=== PATIENT | female | born 1975 | race Caucasian/White ===

== ENCOUNTER 2018-08-29 05:37 | Emergency (ER) | payer MEDICARE ==
[2018-08-29] MEDS ORDERED: OXYCODONE-ACETAMINOPHEN 5-325 MG TABLET PO ONE (06:20)
[2018-08-29] MEDS ORDERED: ONDANSETRON 4 MG TAB.RAPDIS PO ONE (06:20)
--- NOTE | 2018-08-29 06:30 | ER Document Report ---
ED General - General Chief Complaint: Knee Pain Stated Complaint: RIGHT KNEE PAIN Time Seen by Provider: 08/29/18 06:04 Primary Care Provider: HEIDI TRAORE MD [ACTIVE STAFF] - Follow up as needed TRAVEL OUTSIDE OF THE [place] IN LAST 30 DAYS: No - HPI Notes: Patient is a 43-year-old female presents the emergency department of right knee pain. She has known osteoarthritis in that knee. She had a left total knee arthroplasty done 3 or 4 years ago. At that time she was told she should have her right done, but her left knee was too painful so she deferred it. She states she fell hard on her knee in April. She states she fell onto the lateral aspect, with all of her weight landing on the knee. She states that recently she tripped. Since then she states she cannot bear weight without "10 out of 10 pain." I asked about locking up or giving way, and she states she cannot bear weight on it enough to know. She states she is unable to actively straighten the knee because of pain. - Related Data Allergies/Adverse Reactions: Penicillins Allergy (Verified 08/29/18 06:25) Past Medical History - General Information source: Patient - Social History Smoking Status: Current Every Day Smoker Family History: Reviewed & Not Pertinent Patient has suicidal ideation: No Patient has homicidal ideation: No - Past Medical History Cardiac Medical History: Reports: Hx Hypertension Renal/ Medical History: Denies: Hx Peritoneal Dialysis GI Medical History: Reports: Hx Gastritis - Patient relates history of gastric ulcer Musculoskeletal Medical History: Reports Other - Osteoarthritis and degenerative disc disease Psychiatric Medical History: Reports: Hx Anxiety, Hx Depression Past Surgical History: Reports: Hx Orthopedic Surgery - Left total knee arthroplasty Review of Systems - Review of Systems Constitutional: No symptoms reported EENT: No symptoms reported Cardiovascular: No symptoms reported Respiratory: No symptoms reported Gastrointestinal: No symptoms reported Genitourinary: No symptoms reported Musculoskeletal: See HPI Skin: No symptoms reported Neurological/Psychological: No symptoms reported Physical Exam - Vital signs Vitals: Temp Pulse Resp BP Pulse Ox 97.4 F 78 18 151/99 H 98 08/29/18 05:48 08/29/18 05:48 08/29/18 05:48 08/29/18 05:48 08/29/18 05:48 - Notes Notes: Patient is an obese 43-year-old female, appears her stated age, no acute distress. Heart is regular rate and rhythm, lungs are clear to auscultation bilaterally. Examination of the right lower extremity yields no obvious signs of trauma or deformity. Exam is limited secondary to body habitus and pain. She is laying with her leg fully extended at the knee. She does have some medial joint line tenderness. No lateral joint line tenderness. Negative drawer sign. No significant collateral ligament instability. Positive Beatrice's. Neurovascularly intact distally. Course - Re-evaluation Re-evalutation: 08/29/18 07:24 Patient presents the emergency department for evaluation of right knee pain. She Trace has known degenerative joint disease there. X-ray showed significant degenerative changes, trace effusion. These findings are most consistent with exam findings and history. Patient had some improvement in pain with her Percocet here. We will send her home with steroids and an orthopedic referral. She was offered crutches, she states that because of her neuropathy she would have difficulty operating them. We will write a prescription for a walker. Will refer her on to Ortho, she is to return to the emergency department with worsening or new concerning symptoms. - Vital Signs Vital signs: Temp Pulse Resp BP Pulse Ox 97.4 F 78 18 151/99 H 98 08/29/18 05:48 08/29/18 05:48 08/29/18 05:48 08/29/18 05:48 08/29/18 05:48 - Diagnostic Test Radiology reviewed: Reports reviewed - Osteoarthritis and degenerative changes, trace joint effusion Discharge - Discharge Clinical Impression: Osteoarthritis of right knee, Effusion, right knee Condition: Stable Disposition: HOME, SELF-CARE Instructions: Suspected Internal Knee Injury ([facility]) Additional Instructions: Take medication as prescribed until gone. Follow-up with our on-call orthopedist, listed below. Return to the emergency department with worsening or new concerning symptoms. Prescriptions: Methylprednisolone [Medrol Dosepack (4 mg/Tab) 21 Tab/Dosepak] 4 mg PO ASDIR PRN #[id number] PRN Reason: Referrals: HEIDI TRAORE MD [ACTIVE STAFF] - Follow up as needed
--- NOTE | 2018-08-29 07:07 | RADIOLOGY REPORT (SQ) ---
Right knee three view on 08/29/2018 at 6:44 AM CLINICAL INDICATION: Knee pain after fall COMPARISON: None FINDINGS: There is all three compartment joint space narrowing with osteophyte formation consistent with changes of osteoarthritis. Joint space narrowing is worse in the medial compartment. Trace joint effusion is noted. There are no fractures. Visualized joints are well aligned. No other bony abnormality is noted. IMPRESSION: 1. Moderate changes of osteoarthritis with no acute bony abnormality. 2. Probable trace joint effusion, if clinically indicated follow up MRI could better evaluate for internal derangement of the joint.
[2018-08-29 07:54] VITALS: BP 133/72
== END 2018-08-29 07:50 | disposition home or self-care (01) ==
LOC: ER 05:37
DX: M17.11 Unilateral primary osteoarthritis, right knee (principal); M25.461 Effusion, right knee; M25.561 Pain in right knee; I10 Essential (primary) hypertension; E66.9 Obesity, unspecified; F17.200 Nicotine dependence, unspecified, uncomplicated; Z96.652 Presence of left artificial knee joint; Z88.0 Allergy status to penicillin
CPT/HCPCS: 99283; 73562; A9270 ×2; S0119

== ENCOUNTER 2018-12-16 16:30 | Emergency (ER) | payer MEDICARE ==
[2018-12-16] MEDS ORDERED: NORMAL SALINE 1000 ML 1,000 ML IV ONE (17:06)
[2018-12-16] MEDS ORDERED: ONDANSETRON HCL INJ/PF 4 MG/2 ML SDV IV ONE (17:06)
[2018-12-16] MEDS ORDERED: MORPHINE SULFATE 10 MG/ML INJ IV ONE (17:06)
--- NOTE | 2018-12-16 17:09 | ER Document Report ---
ED Medical Screen (RME) - General Chief Complaint: Diarrhea Stated Complaint: DIARRHEA Time Seen by Provider: 12/16/18 17:01 TRAVEL OUTSIDE OF THE [place] IN LAST 30 DAYS: No - HPI Notes: 12/16/18 17:07 Patient is a 43-year-old female with history of stomach ulcers, GERD, irritable bowel who presents complaining of nausea, intermittent abdominal cramping, "explosive" watery diarrhea after being on clindamycin for dental pain/infection. Patient states that she does continue to have dental pain to her upper right and lower right molars. She has not noticed any facial swelling. She is still urinating normally. No other vaginal bleeding, odor, or discharge. Patient spoke with her doctor today who wanted her evaluated and tested for possible C. difficile as well. Denies MORRISON, fever, neck pain, URI, CP, SOB, dysuria, back pain, or rash. I have treated and performed a rapid initial assessment of this patient. A comprehensive ED assessment and evaluation of the patient, analysis of test results and completion of medical decision making process will be conducted by additional ED providers. PHYSICAL EXAMINATION: GENERAL: Well-appearing, well-nourished and in no acute distress. A&Ox4. Answe rs questions appropriately. LUNGS: Breath sounds clear to auscultation bilaterally and equal. No wheezes rales or rhonchi. HEART: Regular rate and rhythm without murmurs, rubs, gallops. ABDOMEN: Soft, nondistended abdomen. No guarding, no rebound. Normal bowel sounds present. No CVA tenderness bilaterally. Grossly nontender (cannot elicit thorough abd exam w/o bed, however). morbid obesity. - Related Data Allergies/Adverse Reactions: Penicillins Allergy (Verified 08/29/18 06:25) Past Medical History - Social History Frequency of alcohol use: None Drug Abuse: None - Past Medical History Cardiac Medical History: Reports: Hx Hypertension Renal/ Medical History: Denies: Hx Peritoneal Dialysis GI Medical History: Reports: Hx Gastritis - Patient relates history of gastric ulcer Psychiatric Medical History: Reports: Hx Anxiety, Hx Depression Past Surgical History: Reports: Hx Orthopedic Surgery - Left total knee arthroplasty Physical Exam - Vital signs Vitals: Temp Pulse Resp BP Pulse Ox 97.5 F 77 16 156/98 H 95 12/16/18 16:52 12/16/18 16:52 12/16/18 16:52 12/16/18 16:52 12/16/18 16:52 Course - Vital Signs Vital signs: Temp Pulse Resp BP Pulse Ox 97.5 F 77 16 156/98 H 95 12/16/18 16:52 12/16/18 16:52 12/16/18 16:52 12/16/18 16:52 12/16/18 16:52
--- NOTE | 2018-12-16 18:08 | ER Document Report ---
ED General - General Chief Complaint: Diarrhea Stated Complaint: DIARRHEA Time Seen by Provider: 12/16/18 17:01 TRAVEL OUTSIDE OF THE [place] IN LAST 30 DAYS: No - HPI Patient complains to provider of: Watery diarrhea Notes: Patient presents with about a 5-day history of profuse watery/explosive diarrhea. Patient has just finished a course of clindamycin therapy for a tooth infection. She is concerned she may have C. difficile. Patient denies fever chills or abdominal tenderness. - Related Data Allergies/Adverse Reactions: Penicillins Allergy (Verified 08/29/18 06:25) Past Medical History - Social History Smoking Status: Unknown if Ever Smoked Frequency of alcohol use: None Drug Abuse: None Family History: Reviewed & Not Pertinent Patient has suicidal ideation: No Patient has homicidal ideation: No - Past Medical History Cardiac Medical History: Reports: Hx Hypertension Renal/ Medical History: Denies: Hx Peritoneal Dialysis GI Medical History: Reports: Hx Gastritis - Patient relates history of gastric ulcer Psychiatric Medical History: Reports: Hx Anxiety, Hx Depression Past Surgical History: Reports: Hx Orthopedic Surgery - Left total knee arthroplasty Review of Systems - Review of Systems Notes: REVIEW OF SYSTEMS: CONSTITUTIONAL: -fevers, -chills EENT: -eye pain, -difficulty swallowing, -nasal congestion CARDIOVASCULAR: -chest pain, -syncope. RESPIRATORY: -cough, -SOB GASTROINTESTINAL: -abdominal pain, -nausea, -vomiting, + diarrhea GENITOURINARY: -dysuria, -hematuria MUSCULOSKELETAL: -back pain, -neck pain SKIN: -rash or skin lesions. HEMATOLOGIC: -easy bruising or bleeding. LYMPHATIC: -swollen, enlarged glands. NEUROLOGICAL: -altered mental status or loss of consciousness, -headache, - neurologic symptoms PSYCHIATRIC: -anxiety, -depression. ALL OTHER SYSTEMS REVIEWED AND NEGATIVE. Physical Exam - Vital signs Vitals: Temp Pulse Resp BP Pulse Ox 97.5 F 77 16 156/98 H 95 12/16/18 16:52 12/16/18 16:52 12/16/18 16:52 12/16/18 16:52 12/16/18 16:52 - Notes Notes: PHYSICAL EXAMINATION: GENERAL: Well-appearing, well-nourished and in no acute distress. HEAD: Atraumatic, normocephalic. EYES: Pupils equal round and reactive to light, extraocular movements intact, sclera anicteric, conjunctiva are normal. ENT: nares patent, oropharynx clear without exudates. Moist mucous membranes. NECK: Normal range of motion, supple without lymphadenopathy LUNGS: Breath sounds clear to auscultation bilaterally and equal. No wheezes rales or rhonchi. HEART: Regular rate and rhythm without murmurs ABDOMEN: Soft, nontender, normoactive bowel sounds. No guarding, no rebound. No masses appreciated. EXTREMITIES: Normal range of motion, no pitting or edema. No cyanosis. NEUROLOGICAL: Cranial nerves grossly intact. Normal speech, normal gait. Normal sensory and motor exams. PSYCH: Normal mood, normal affect. SKIN: Warm, Dry, normal turgor, no rashes or lesions noted. Course - Re-evaluation Re-evalutation: 12/16/18 18:15 43-year-old female presents with continued diarrhea for several days. Patient is nontoxic-appearing stable vital signs within normal limits. No pain at this time. 12/16/18 19:48 Leukocytosis negative C. difficile no gross abnormalities. Benign physical exam stable vitals within normal limits will be discharged home follow-up PCP - Vital Signs Vital signs: Temp Pulse Resp BP Pulse Ox 97.5 F 77 16 156/98 H 95 12/16/18 16:52 12/16/18 16:52 12/16/18 16:52 12/16/18 16:52 12/16/18 16:52 - Laboratory Result Diagrams: 12/16/18 17:40 12/16/18 17:40 Laboratory results interpreted by me: 12/16/18 12/16/18 17:40 17:40 Hgb 11.0 L Hct 32.7 L RDW 15.1 H Urine Blood SMALL H Discharge - Discharge Clinical Impression: Diarrhea Qualifiers: Diarrhea type: unspecified type Qualified Code(s): R19.7 - Diarrhea, unspecified Condition: Stable Disposition: HOME, SELF-CARE Instructions: Diarrhea, Nonspecific ([facility]) Additional Instructions: Your PCP
[2018-12-16 18:18] LABS: ABSOLUTE EOSINOPHILS # (AUTO) 0.3 10^3/uL (0.0-0.6); ABSOLUTE LYMPHOCYTES (AUTO) 1.4 10^3/uL (0.5-4.7); ABSOLUTE MONOCYTES (AUTO) 0.4 10^3/uL (0.1-1.4); ABSOLUTE NEUT (AUTO) 3.5 10^3/uL (1.7-8.2); BASOPHILS % (AUTO) 0.8 % (0-2); EOSINOPHILS % (AUTO) 4.8 % (0-6); HEMATOCRIT 32.7 % (36.0-47.0); LYMPHOCYTES % (AUTO) 24.9 % (13-45); MEAN CORPUSCULAR HEMOGLOBIN 27.7 pg (27.0-33.4); MEAN CORPUSCULAR HGB CONC 33.7 g/dL (32.0-36.0); MEAN CORPUSCULAR VOLUME 82 fl (80-97); MONOCYTES % (AUTO) 6.9 % (3-13); PLATELET COUNT 269 10^3/uL (150-450); RED BLOOD COUNT 3.97 10^6/uL (3.72-5.28); RED CELL DISTRIBUTION WIDTH 15.1 % (11.5-14.0); SEGMENTED NEUTROPHILS % (AUTO) 62.6 % (42-78); TOTAL CELLS COUNTED % (AUTO) 100 %; WHITE BLOOD COUNT 5.6 10^3/uL (4.0-10.5)
[2018-12-16 18:31] LABS: APPEARANCE,URINE CLEAR; BILIRUBIN,URINE NEGATIVE (NEGATIVE); COLOR,URINE STRAW; GLUCOSE, URINE NEGATIVE (NEGATIVE); KETONES,URINE NEGATIVE (NEGATIVE); LEUKOCYTE ESTERASE,URINE NEGATIVE (NEGATIVE); NITRITE,URINE NEGATIVE (NEGATIVE); PROTEIN,URINE NEGATIVE (NEGATIVE); URINE SPECIFIC GRAVITY 1.008; UROBILINOGEN,URINE NEGATIVE mg/dL (<2.0)
[2018-12-16 18:36] LABS: ALBUMIN 4.4 g/dL (3.5-5.0); ALKALINE PHOSPHATASE 74 U/L (38-126); ANION GAP 12 (5-19); ASPARTATE AMINO TRANSFERASE 24 U/L (14-36); BILIRUBIN,DIRECT 0.2 mg/dL (0.0-0.4); BILIRUBIN,TOTAL 0.3 mg/dL (0.2-1.3); BLOOD UREA NITROGEN 12 mg/dL (7-20); CALCIUM 9.4 mg/dL (8.4-10.2); CARBON DIOXIDE 26 mmol/L (22-30); CHLORIDE 101 mmol/L (98-107); GLUCOSE 83 mg/dL (75-110); POTASSIUM 4.2 mmol/L (3.6-5.0); TOTAL PROTEIN 6.9 g/dL (6.3-8.2)
[2018-12-16 20:25] VITALS: BP 162/99
== END 2018-12-16 20:30 | disposition home or self-care (01) ==
LOC: ER 16:30
DX: R19.7 Diarrhea, unspecified (principal); D72.829 Elevated white blood cell count, unspecified; I10 Essential (primary) hypertension; Z88.0 Allergy status to penicillin
CPT/HCPCS: 99284; 96361; 96374; 96375; 36415; 83690; 85025; 81025; 80053; 81001; 87493; J2270; J2405; J7030

== ENCOUNTER 2019-10-21 15:22 | Emergency (ER) | payer MEDICARE ==
--- NOTE | 2019-10-21 16:17 | ER Document Report ---
ED Medical Screen (RME) - General Chief Complaint: Abdominal Pain Stated Complaint: LOWER ABDOMINAL PAIN Time Seen by Provider: 10/21/19 16:13 Mode of Arrival: Wheelchair Information source: Patient Notes: 44-year-old female presents to ED for complaint of severe lower abdominal pelvic pain. She states she has a prolapsed uterus. She states she has perimenopause. She states she has not been to see a primary care or CHIEF LEARNING OFFICER concerning this problem is just recently started. States she is having a large amount of blood going through a pad all with large clots. She states she is used muscle relaxers and Tylenol neither of which have helped with her pain. I have greeted and performed a rapid initial assessment of this patient. A comprehensive ED assessment and evaluation of the patient, analysis of test results and completion of medical decision making process will be conducted by an additional ED providers. TRAVEL OUTSIDE OF THE [place] IN LAST 30 DAYS: No - Related Data Allergies/Adverse Reactions: Penicillins Allergy (Verified 10/21/19 16:07) Past Medical History - Social History Frequency of alcohol use: None Drug Abuse: None - Past Medical History Cardiac Medical History: Reports: Hx Hypertension Renal/ Medical History: Denies: Hx Peritoneal Dialysis GI Medical History: Reports: Hx Gastritis - Patient relates history of gastric ulcer Psychiatric Medical History: Reports: Hx Anxiety, Hx Depression Past Surgical History: Reports: Hx Orthopedic Surgery - Left total knee arthroplasty Physical Exam - Vital signs Vitals: Temp 98.1 F 10/21/19 15:23 Course - Vital Signs Vital signs: Temp Pulse Resp BP Pulse Ox 98.1 F 96 24 H 162/99 H 99 10/21/19 15:27 10/21/19 16:10 10/21/19 15:27 10/21/19 16:10 10/21/19 16:10
[2019-10-21 18:25] LABS: ABSOLUTE EOSINOPHILS # (AUTO) 0.2 10^3/uL (0.0-0.6); ABSOLUTE LYMPHOCYTES (AUTO) 1.8 10^3/uL (0.5-4.7); ABSOLUTE MONOCYTES (AUTO) 0.4 10^3/uL (0.1-1.4); ABSOLUTE NEUT (AUTO) 5.3 10^3/uL (1.7-8.2); BASOPHILS % (AUTO) 0.4 % (0-2); EOSINOPHILS % (AUTO) 2.2 % (0-6); HEMATOCRIT 33.2 % (36.0-47.0); HEMOGLOBIN 11.2 g/dL (12.0-15.5); MEAN CORPUSCULAR HEMOGLOBIN 27.5 pg (27.0-33.4); MEAN CORPUSCULAR HGB CONC 33.7 g/dL (32.0-36.0); MEAN CORPUSCULAR VOLUME 82 fl (80-97); MONOCYTES % (AUTO) 5.8 % (3-13); PLATELET COUNT 267 10^3/uL (150-450); RED BLOOD COUNT 4.07 10^6/uL (3.72-5.28); RED CELL DISTRIBUTION WIDTH 14.6 % (11.5-14.0); SEGMENTED NEUTROPHILS % (AUTO) 68.6 % (42-78); TOTAL CELLS COUNTED % (AUTO) 100 %; WHITE BLOOD COUNT 7.7 10^3/uL (4.0-10.5)
[2019-10-21 18:43] LABS: ALBUMIN 4.3 g/dL (3.5-5.0); ALKALINE PHOSPHATASE 75 U/L (38-126); ANION GAP 8 (5-19); ASPARTATE AMINO TRANSFERASE 25 U/L (14-36); BILIRUBIN,TOTAL 0.3 mg/dL (0.2-1.3); BLOOD UREA NITROGEN 11 mg/dL (7-20); CALCIUM 9.2 mg/dL (8.4-10.2); CARBON DIOXIDE 26 mmol/L (22-30); CHLORIDE 104 mmol/L (98-107); GLUCOSE 118 mg/dL (75-110); POTASSIUM 4.1 mmol/L (3.6-5.0)
--- NOTE | 2019-10-21 18:48 | RADIOLOGY REPORT (SQ) ---
EXAM DESCRIPTION: U/S NON OB PEL W/DOPPLER IMAGES COMPLETED DATE/TIME: 10/21/2019 5:19 pm REASON FOR STUDY: Vaginal bleeding clots severe pelvic pain LMP current COMPARISON: None. TECHNIQUE: Dynamic and static grayscale images acquired of the pelvis via transabdominal approach an d recorded on PACS. Additional selected color Doppler and spectral images recorded. LIMITATIONS: None. FINDINGS: UTERUS: Contour normal. No mass. ENDOMETRIAL STRIPE: No focal or generalized thickening. No masses. CERVIX: 1.5 cm. No nabothian cysts. RIGHT OVARY AND DOPPLER: Normal size. There is a cyst that measures 6.2 x 5.8 x 6.4 cm. No worrisom e masses. Normal arterial vascular flow without evidence for torsion. LEFT OVARY AND DOPPLER: Normal size. No worrisome masses. Normal arterial vascular flow without evide nce for torsion. FREE FLUID: None noted. OTHER: No other significant finding. MEASUREMENTS: UTERUS: 4.3 x 3.4 x 2.6 cm. ENDOMETRIAL STRIPE: 5 mm. RIGHT OVARY: 6.9 x 6.3 x 6.4 cm. LEFT OVARY: 4 x 3.3 x 3.2 cm. IMPRESSION: 6.4 cm simple cyst on the right ovary. This is almost certainly benign. Recommend tom al follow-up. No other significant finding. TECHNICAL DOCUMENTATION: JOB ID: [id number] 2010 [employer]- All Rights Reserved Rev-09/27 Reading location - IP/workstation name: [email or web address]
[2019-10-21 19:53] LABS: APPEARANCE,URINE SLIGHTLY-CLOUDY; BILIRUBIN,URINE NEGATIVE (NEGATIVE); COLOR,URINE YELLOW; GLUCOSE, URINE NEGATIVE (NEGATIVE); KETONES,URINE NEGATIVE (NEGATIVE); LEUKOCYTE ESTERASE,URINE NEGATIVE (NEGATIVE); NITRITE,URINE NEGATIVE (NEGATIVE); PROTEIN,URINE 30 mg/dL (NEGATIVE); URINE SPECIFIC GRAVITY 1.024; UROBILINOGEN,URINE NEGATIVE mg/dL (<2.0)
--- NOTE | 2019-10-21 20:12 | ER Document Report ---
ED General - General Chief Complaint: Abdominal Pain Stated Complaint: LOWER ABDOMINAL PAIN Time Seen by Provider: 10/21/19 16:13 Primary Care Provider: LEATHA MACDONALD AGNP [Primary Care Provider] - Follow up as needed Mode of Arrival: Wheelchair Information source: Patient TRAVEL OUTSIDE OF THE [place] IN LAST 30 DAYS: No - HPI Onset: Yesterday Quality of pain: Sharp Severity: Severe Pain Level: 5 Associated symptoms: Other - vaginal bleeding, pelvic pain Exacerbated by: Denies Relieved by: Denies Similar symptoms previously: No Recently seen / treated by doctor: No Notes: 44 year old female with a history of Obesity, HTN, GERD here in the ER for severe pelvic pain and heavy vaginal bleeding. The patient says she thinks she is going through menopause. The patient has been having irregular periods as of late but she has never had the pain she had today. The patient also thinks she has a prolapsed uterus. The patient has not seen an PROSPECTING OBSERVER doctor in the last 5 years. The patient says when she was waiting in the ER waiting room she had intense pelvic pain and very heavy bleeding soaking through her cloths. The patient says she had a miscarriage when she was a teenager and that is the only other time in her life she has felt pelvic pain like that before. - Related Data Allergies/Adverse Reactions: Penicillins Allergy (Verified 10/21/19 16:07) Past Medical History - General Information source: Patient - Social History Smoking Status: Current Every Day Smoker Frequency of alcohol use: None Drug Abuse: None Lives with: Family Family History: Reviewed & Not Pertinent Patient has homicidal ideation: No - Past Medical History Cardiac Medical History: Reports: Hx Hypertension Renal/ Medical History: Denies: Hx Peritoneal Dialysis GI Medical History: Reports: Hx Gastritis - Patient relates history of gastric ulcer Psychiatric Medical History: Reports: Hx Anxiety, Hx Depression Past Surgical History: Reports: Hx Orthopedic Surgery - Left total knee arthroplasty Review of Systems - Review of Systems Constitutional: No symptoms reported EENT: No symptoms reported Cardiovascular: No symptoms reported Respiratory: No symptoms reported Gastrointestinal: No symptoms reported Genitourinary: No symptoms reported Female Genitourinary: Vaginal bleeding, Other - uterine prolapse Musculoskeletal: No symptoms reported Skin: No symptoms reported Hematologic/Lymphatic: No symptoms reported Neurological/Psychological: No symptoms reported -: Yes All other systems reviewed and negative Physical Exam - Vital signs Vitals: Temp 98.1 F 10/21/19 15:23 - Notes Notes: GENERAL: Well-appearing, well-nourished and in no acute distress. HEAD: Atraumatic, normocephalic. EYES: Pupils equal round and reactive to light, extraocular movements intact, sclera anicteric, conjunctiva are normal. ENT: External Ears normal, nares patent, oropharynx clear without exudates. Moist mucous membranes. NECK: Normal range of motion, supple without lymphadenopathy or JVD. LUNGS: Breath sounds clear to auscultation bilaterally and equal. No wheezes rales or rhonchi. HEART: Regular rate and rhythm without murmurs, rubs or gallops. ABDOMEN: Soft, nontender, normoactive bowel sounds. No guarding, no rebound. No masses appreciated. : EXTREMITIES: Normal range of motion, no pitting or edema. No clubbing or cyanosis. NEUROLOGICAL: Cranial nerves II through XII grossly intact. Normal speech, normal gait. PSYCH: Normal mood, normal affect. SKIN: Warm, Dry, normal turgor, no rashes or lesions noted. Course - Vital Signs Vital signs: Temp Pulse Resp BP Pulse Ox 98.1 F 96 19 145/66 H 98 10/21/19 15:27 10/21/19 16:10 10/21/19 18:40 10/21/19 18:01 10/21/19 18:40 - Laboratory Result Diagrams: 10/21/19 17:55 10/21/19 17:55 Laboratory results interpreted by me: 10/21/19 10/21/19 10/21/19 17:00 17:55 17:55 Hgb 11.2 L Hct 33.2 L RDW 14.6 H Glucose 118 H Urine Protein 30 H Urine Blood LARGE H Urine Ascorbic Acid 40 H - Diagnostic Test Radiology reviewed: Image reviewed, Reports reviewed Discharge - Discharge Clinical Impression: Pelvic pain, Vaginal bleeding Condition: Stable Disposition: HOME, SELF-CARE Instructions: Vaginal Bleeding ([facility]), Pelvic Pain ([facility]), Menopausal Symptoms ([facility]), Menorrhagia ([facility]) Additional Instructions: Use Tylenol and Motrin for pelvic pain. Follow up with an PROSPECTING OBSERVER Doctor (such as with Dr. Mancini) as soon as possibly for further work up and management of your painful vaginal bleeding. You had blood work, a urine analysis, and a pelvic ultrasound in the ER today. Return to an ER for persistent heavy vaginal bleeding, uncontrolled pelvic pain, or if worse. Referrals: LEATHA MACDONALD AGNP [Primary Care Provider] - Follow up as needed GIORGI MANCINI MD [ACTIVE PROVISIONAL STAFF] - Follow up as needed
[2019-10-21 20:53] VITALS: BP 154/88
[2019-10-21 21:03] LABS: BACTERIA (WET MOUNT) 3+ BACTERIA SEEN; EPITHELIALS (WET MOUNT) 3+ EPITHELIALS SEEN; RBCS (WET MOUNT) 4+ RBCS SEEN; T.VAGINALIS (WET MOUNT) NO TRICHOMONAS SEEN; WBCS (WET MOUNT) 3+ WBCS SEEN; YEAST (WET MOUNT) NO YEAST SEEN
== END 2019-10-21 20:53 | disposition home or self-care (01) ==
LOC: ER 15:22
DX: N83.291 Other ovarian cyst, right side (principal); N81.4 Uterovaginal prolapse, unspecified; R10.2 Pelvic and perineal pain; N93.9 Abnormal uterine and vaginal bleeding, unspecified; N92.6 Irregular menstruation, unspecified; I10 Essential (primary) hypertension; Z88.0 Allergy status to penicillin; F17.200 Nicotine dependence, unspecified, uncomplicated
CPT/HCPCS: 36415; 76856; 80053; 81001; 83690; 84703; 85025; 87210; 93976; 99284